=== PATIENT | female | born 1945 | race African-American/Black ===

== ENCOUNTER 2018-01-20 16:02 | Emergency (ER) | payer MEDICARE, MEDICAID ==
[2018-01-20 16:43] LABS: Bilirubin Negative (Negative); Blood, Urine Negative (Negative); Clarity CLOUDY (Clear); Glucose, Urine (Dipstick) Negative (Negative); Leukocyte Large (Negative); Nitrite Negative (Negative); Protein, Urine (Dipstick) Negative (Neg-Trace); Specific Gravity, Urine 1.014 (1.002-1.036)
[2018-01-20 16:45] LABS: Bacteria/HPF 2+ HPF (None Seen); Hyaline Casts/LPF 0-3 HYALINE CAST LPF (0-3 Hyaline); Pathc Cast-AUWi Flag 0.14 (0-2.49); RBC/HPF 0-3 HPF (0-3); Squamous Epithelial None Seen HPF (0-3)
[2018-01-20 17:01] LABS: #Eosinphils 0.2 thou/uL (0.0-0.7); #Lymphocytes 1.7 thou/uL (1.20-3.40); #Monocytes 0.6 thou/uL (0.11-0.59); #Neutrophils 4.2 thou/uL (1.40-6.50); %Basophils 0.5 % (0.0-1.0); %Eosinophils 3.6 % (0.0-10.0); %Lymphocytes 25.8 % (21.0-51.0); %Monocytes 8.1 % (0.0-10.0); %Neutrophils 61.9 % (42.0-75.0); Hemoglobin 11.6 g/dL (12.0-16.0); Mean Corpuscular HGB CONC 33.2 g/dL (32.0-36.0); Mean Corpuscular Hemoglobin 30.4 pg (27.0-31.0); Mean Corpuscular Volume 91.7 fL (78.0-98.0); Mean Platelet Volume 6.5 fL (7.4-10.4); Platelet Count 213 thou/uL (130-400); RBC Distribution Width 11.5 % (11.5-14.5); White Blood Cell (WBC) Count 6.7 thou/uL (4.8-10.8)
--- NOTE | 2018-01-20 17:01 | RAD ---
CHEST ONE VIEW: 01/20/18 HISTORY: Altered mental status. COMPARISON: 05/06/13. FINDINGS: Portable upright chest demonstrates a normal cardiac silhouette. The pulmonary vessels and hilum are normal. Costophrenic angles are clear. No consolidation or mass. No pneumothorax or osseous abnormali ties. IMPRESSION: No acute cardiopulmonary process. POS: [facility]
[2018-01-20 17:24] LABS: ALT (SGPT) 8 U/L (8-55); AST (SGOT) 14 U/L (5-34); Albumin 4.3 g/dL (3.4-4.8); Alkaline Phosphatase 59 U/L (40-150); Anion Gap 14 mmol/L (10-20); BUN (Urea Nitrogen) 14 mg/dL (9.8-20.1); Bilirubin, Total 0.4 mg/dL (0.2-1.2); CK (CPK) 188 U/L (29-168); Calc. Creatinine Clearance 0 mL/min (70-130); Calcium 9.8 mg/dL (7.8-10.44); Carbon Dioxide 23 mmol/L (23-31); Chloride 104 mmol/L (98-107); Estimated GFR-MDRD 86; Globulin 3.8 g/dL (2.4-3.5); Glucose 83 mg/dL (83-110); Lipase 21 U/L (8-78); Potassium 3.8 mmol/L (3.5-5.1); Protein, Total 8.1 g/dL (6.0-8.3); Sodium 137 mmol/L (136-145)
[2018-01-20 17:27] LABS: Troponin I Less than 0.010 ng/mL (< 0.028)
--- NOTE | 2018-01-20 17:43 | CT ---
HEAD CT WITHOUT CONTRAST: 01/20/18 COMPARISON: 05/06/13. HISTORY: Altered mental status. FINDINGS: Stable postsurgical changes involving the right cerebrum. Stable aneurysm clips in the right middle c ranial fossa. Stable malacic changes involving the right cerebrum. Stable hypodensities in the deep g ray matter and periventricular white matter. Grossly, the left cerebrum demonstrates subtle loss of p ossible cortical rivers-white matter differentiation involving the left frontal lobe. Left temporal and parietal lobe are unremarkable. Adequate aeration of the mastoid air cells. Mild right sphenoid sinus disease. IMPRESSION: 1. Subtle loss of cortical rivers-white matter differentiation in the left frontal lobe. Correlate clinically for possible left frontal lobe infarction. 2. Stable posttreatment and postsurgical changes in the right cerebrum. POS: [facility]
[2018-01-20] MEDS ORDERED: Ciprofloxacin 500 MG TAB ONE (18:21)
[2018-01-20] MEDS ORDERED: Labetalol HCl 100 MG/20 ML VIAL ONE (18:21)
== END 2018-01-20 19:17 | disposition home or self-care (01) ==
LOC: ERS 16:02
DX: N39.0 Urinary tract infection, site not specified (principal); E11.9 Type 2 diabetes mellitus without complications; I10 Essential (primary) hypertension; Z86.73 Personal history of transient ischemic attack (TIA), and cerebral infarction without residual deficits; F32.9 Major depressive disorder, single episode, unspecified; Z87.891 Personal history of nicotine dependence; Z79.899 Other long term (current) drug therapy
CPT/HCPCS: 36415; 51701; 70450; 71045; 80053; 81003; 81015; 82550; 82553; 83605; 83690; 83880; 84484; 85025; 87040; 87077; 87086; 87186; 93005; 96361; 96374; A4353

== ENCOUNTER 2018-07-17 22:41 | Observation (INO) | payer MEDICARE, MEDICAID ==
[~2018-07-17 22:41] MED LIST: ISOVUE-370 76%-LOCM 1 ML ONE
--- NOTE | 2018-07-17 23:27 | RAD ---
CHEST ONE VIEW 07/17/18 INDICATION: Altered mental status. COMPARISON: Prior exam dated 01/20/18. FINDINGS: There is stable cardiomegaly. Lungs are clear. Neck soft tissue limits evaluation of lung apices. No pleural effusion is evident. No acute osseous abnormality is evident. IMPRESSION: No definite acute abnormality. POS: [facility]
--- NOTE | 2018-07-17 23:31 | CT ---
CT OF THE BRAIN WITHOUT CONTRAST 07/17/18 INDICATION: Level II stroke alert with slurred speech and altered mental status. COMPARISON: Prior exam dated 01/20/18. FINDINGS: There is stable postsurgical change of a partial right cranial resection. There is prominent encephal omalacia involving the right frontoparietal region as well as portions of the right temporal lobe. T here is ex vacuo dilatation of the right lateral ventricle. Chronic ischemic change is stable. Remote lacunar infarction involving the basal ganglia and right thalamus are stable appearing. No acute inf arct, hemorrhage or hydrocephalus is present. Mastoid air cells and paranasal sinuses are clear. Surg ical clips are again seen within the right middle cranial fossa. IMPRESSION: 1. No acute intracranial abnormality. 2. Postsurgical change and chronic ischemic change as above. POS: [facility]
--- NOTE | 2018-07-17 23:48 | CT ---
CTA OF THE HEAD UTILIZING IV CONTRAST AND 3D REFORMATTED IMAGING CTA OF THE NECK UTILIZING IV CONTRAST AND 3D REFORMATTED IMAGING 07/17/18 INDICATION: Altered mental status with slurred speech that has resolved when EMS arrived at the scene; history of aneurysm. FINDINGS: No hemodynamically significant stenosis, occlusion or aneurysmal formation seen within the head and n william region. There are aneurysmal clips seen within the right middle cranial fossa producing beam scat tered artifact which slightly limits evaluation of the M2 and M3 branches along the right. Portions o f the anterior branching of the MCA are diminutive and likely occluded. There is prominent encephalom alacia of the right MCA distribution consistent with prior history of cerebral insult. Severe chroni c small vessel white matter ischemic change again noted. No abnormal enhancement is seen within the v isualized brain. No definite abnormal lymphadenopathy or mass is evident within the neck. Lung apices are clear. There is scattered degenerative change. IMPRESSION: No hemodynamically significant stenosis, occlusion or aneurysmal formation. POS: [facility]
[2018-07-17 23:50] LABS: #Eosinphils 0.1 thou/uL (0.0-0.7); #Lymphocytes 1.1 thou/uL (1.20-3.40); #Monocytes 0.5 thou/uL (0.11-0.59); #Neutrophils 4.6 thou/uL (1.40-6.50); %Basophils 0.6 % (0.0-1.0); %Eosinophils 1.2 % (0.0-10.0); %Lymphocytes 17.7 % (21.0-51.0); %Monocytes 8.3 % (0.0-10.0); %Neutrophils 72.1 % (42.0-75.0); Hemoglobin 10.6 g/dL (12.0-16.0); Mean Corpuscular HGB CONC 31.8 g/dL (32.0-36.0); Mean Corpuscular Hemoglobin 29.2 pg (27.0-31.0); Mean Corpuscular Volume 91.7 fL (78.0-98.0); Mean Platelet Volume 6.7 fL (7.4-10.4); Platelet Count 179 thou/uL (130-400); RBC Distribution Width 11.8 % (11.5-14.5); Red Blood Cell (RBC) Count 3.63 mill/uL (4.20-5.40); White Blood Cell (WBC) Count 6.4 thou/uL (4.8-10.8)
[2018-07-18 00:12] LABS: ALT (SGPT) 10 U/L (8-55); AST (SGOT) 11 U/L (5-34); Albumin 3.7 g/dL (3.4-4.8); Alkaline Phosphatase 52 U/L (40-150); Anion Gap 12 mmol/L (10-20); BUN (Urea Nitrogen) 29 mg/dL (9.8-20.1); Bilirubin, Total 0.2 mg/dL (0.2-1.2); CK (CPK) 160 U/L (29-168); Calc. Creatinine Clearance 0 mL/min (70-130); Calcium 9.2 mg/dL (7.8-10.44); Carbon Dioxide 23 mmol/L (23-31); Chloride 104 mmol/L (98-107); Estimated GFR-MDRD 57; Globulin 3.1 g/dL (2.4-3.5); Glucose 127 mg/dL (83-110); Potassium 4.1 mmol/L (3.5-5.1); Protein, Total 6.8 g/dL (6.0-8.3); Sodium 135 mmol/L (136-145)
[2018-07-18] MEDS ORDERED: Aspirin Chewable 81 MG TAB ONE (00:14)
[2018-07-18] MEDS ORDERED: Aspirin 325 MG TAB ONE (00:15)
--- NOTE | 2018-07-18 01:17 | PDOC.FPRHP ---
- History of Present Illness Chief Complaint: slurred speech History of Present Illness: 72yo F with pmh of ruptured brain aneurysm with intracranial surgery presents with complaint of slurred speech. Pt reports symptom onset this morning at home with family and the it lasted 10 minutes. Pt denied any other new neurologic symptoms during this time including new focal weakness or sensory loss or syncope/seizure. No facial droop. Pt has residual L sided weakness and LUE contracture from previous brain aneurysm and craniectomy with partial lobectomy. ED Course: ASA 325, CT head, CTA - Allergies/Adverse Reactions Allergies Allergy/AdvReac Type Severity Reaction Status Date / Time No Known Drug Allergies Allergy Verified 07/18/18 02:24 - Home Medications Medication Instructions Recorded Confirmed Type Simvastatin 20 mg PO HS #0 tablet 05/08/13 07/18/18 Rx Amlodipine [Norvasc] 10 mg PO DAILY 07/18/18 07/18/18 History Furosemide [Lasix] 40 mg PO DAILY 07/18/18 07/18/18 History Labetalol [Normodyne] 200 mg PO BID 07/18/18 07/18/18 History Ranitidine HCl 150 mg PO DAILY 07/18/18 07/18/18 History Tolterodine [Detrol] 2 mg PO BID 07/18/18 07/18/18 History - History PMHx:Brain aneurysm s/p craniectomy and partial lobectomy, hemiparesis L, CKD 2 , urge incontinence, DM, HLD PSHx: Craniectomy with partial lobectomy FHx: non contributory Social: former smoker (240 pack years), denies etoh/drugs - Review of Systems General: denies: fever/chills, fatigue Eyes: denies: eye pain, vision changes ENT: denies: nasal congestion, rhinorrhea Respiratory: denies: congestion, shortness of breath Cardiovascular: denies: chest pain, palpitation Gastrointestinal: denies: nausea, vomiting Genitourinary: denies: incontinence, dysuria Skin: denies: rashes, lesions Musculoskeletal: denies: pain, tenderness Neurological: denies: syncope, seizure Psychological: denies: anxiety, depression - Vital signs BP: [130/74] HR: [86] RR: [16] Tmax: [98.4] Pox: [98]% on [ra] Wt: [102kg] - Physical Exam Constitutional: awake, alert and oriented, well developed HEENT: EOMI, grossly normal vision, grossly normal hearing, other (R side of head has crater evidence from craniectomy with skull flap) Neck: supple, trachea midline Chest: no-tender to palpation Heart: RRR, normal S1/S2 Lungs: CTAB, no respiratory distress Abdomen: soft, non-tender Musculoskeletal: normal structure, normal tone Neurological: other -Neurological: CHRONIC DEFICIT: gabriel L sided decreased sensation, LUE contracture, L shoulder shrug weak, LLE strength 4.5/5, L patellar reflex 1 Skin: no rash/lesions, good turgor Heme/Lymphatic: no unusual bruising or bleeding, no purpura Psychiatric: normal mood and affect, intact recent and remote memory FMR H&P: Results - Labs Result Diagrams: 07/17/18 23:32 07/17/18 23:32 Lab results: WBC 6.4 thou/uL (4.8-10.8) 07/17/18 23:32 Hgb 10.6 g/dL (12.0-16.0) L 07/17/18 23:32 Hct 33.3 % (36.0-47.0) L 07/17/18 23:32 MCV 91.7 fL (78.0-98.0) 07/17/18 23:32 Plt Count 179 thou/uL (130-400) 07/17/18 23:32 Neutrophils % 72.1 % (42.0-75.0) 07/17/18 23:32 Sodium 135 mmol/L (136-145) L 07/17/18 23:32 Potassium 4.1 mmol/L (3.5-5.1) 07/17/18 23:32 Chloride 104 mmol/L (98-107) 07/17/18 23:32 Carbon Dioxide 23 mmol/L (23-31) 07/17/18 23:32 BUN 29 mg/dL (9.8-20.1) H 07/17/18 23:32 Creatinine 1.13 mg/dL (0.6-1.1) H 07/17/18 23:32 Glucose 127 mg/dL (83-110) H 07/17/18 23:32 Calcium 9.2 mg/dL (7.8-10.44) 07/17/18 23:32 Total Bilirubin 0.2 mg/dL (0.2-1.2) 07/17/18 23:32 AST 11 U/L (5-34) 07/17/18 23:32 ALT 10 U/L (8-55) 07/17/18 23:32 Alkaline Phosphatase 52 U/L (40-150) 07/17/18 23:32 Creatine Kinase 160 U/L (29-168) 07/17/18 23:32 Serum Total Protein 6.8 g/dL (6.0-8.3) 07/17/18 23:32 Albumin 3.7 g/dL (3.4-4.8) 07/17/18 23:32 FMR H&P: A/P - Problem List (1) TIA (transient ischemic attack) Current Visit: Yes Status: Acute Code(s): G45.9 - TRANSIENT CEREBRAL ISCHEMIC ATTACK, UNSPECIFIED (2) History of CVA (cerebrovascular accident) Current Visit: Yes Status: Acute Code(s): Z86.73 - PRSNL HX OF TIA (TIA), AND CEREB INFRC W/O RESID DEFICITS (3) HTN (hypertension) Current Visit: Yes Status: Acute Code(s): I10 - ESSENTIAL (PRIMARY) HYPERTENSION (4) Diabetes mellitus Current Visit: Yes Status: Acute Code(s): E11.9 - TYPE 2 DIABETES MELLITUS WITHOUT COMPLICATIONS (5) HLD (hyperlipidemia) Current Visit: Yes Status: Acute Code(s): E78.5 - HYPERLIPIDEMIA, UNSPECIFIED - Plan TIA vs CVA A- CT and CTA are negative, the only symptom she had has since resolved. Pt is s.p 325mg ASA P- continue daily ASA - MRI tomorrow pending Radiology's blessing as pt has intracranial clips - FLP in AM - NPO until passed dysphagia screen KAVITA on ckd A- pt has listed hx of CKD2 but most recent Cr in June was wnl. Cr 1.13 at this visit, possibly acutely due to mild hypovolemia P- LR at 125ml/hr - BMP in AM DM A- Pt reported hx of DM but has no meds listed, BG controlled P- SSI, accuchecks HTN -home meds HLD -home meds urge incontinence -home meds CODE: full dispo: stroke obs FMR H&P: Upper Level - Pertinent history 72 yo AAF PMH CVA, aneurysm, and s/p craniotomy with partial lobectomy. Presents with 10 minutes of slurred speech that started at approximately 2130. Resolved by the time she got to the ER. States she has residual left sided deficits from previous CVA. No other symptoms. Former smoker. ER: Labs, CT brain, ASA - Pertinent findings Vitals: WNL GEN: NAD CV: RRR, no murmur Pulm: CTA-B Neuro: left CN11 weakness. Left arm contracted. left leg 4/5. Decreased sensation on left. otherwise WNL. Labs: Cr 1.13, CT- brain: chronic changes. No acute processes. - Plan Date/Time: 07/18/186 I, Amari Rincon MD, have evaluated this patient and agree with findings/plan as outlined by editing internship resident. Pertinent changes/additions are listed here. 1. TIA r/o CVA: FLP, neuro checks. baseline deficits stable. MRI in AM. Bedside dysphasia screen. 2. KAVITA: IV LR at 125 mL/hr 3. chronic conditions per editing internship note. 4. Diet: NPO, HH pending bed side dysphasia screen 5. PPx: SCDs 6. CODE: FULL Dispo: Obs, Stroke, <[address] Leger.
[2018-07-18] MEDS ORDERED: Ondansetron ODT 4 MG TAB SL PRN (02:11)
[2018-07-18] MEDS ORDERED: Dextrose 5% in Water 1,000 ML IV PRN (02:11)
[2018-07-18] MEDS ORDERED: Calcium Carbonate 500 MG ChewTAB PO PRN (02:11)
[2018-07-18] MEDS ORDERED: HumaLOG 300 UNITS/3 ML VIAL SC PRN (02:11)
[2018-07-18] MEDS ORDERED: Ondansetron ODT 4 MG TAB PO PRN (02:11)
[2018-07-18] MEDS ORDERED: Ondansetron PF 4 MG/2 ML Vial IVP PRN (02:11)
[2018-07-18] MEDS ORDERED: Dextrose 50% Abboject 50 ML SYRINGE SLOW IVP PRN (02:11)
[2018-07-18] MEDS ORDERED: Acetaminophen 325 MG TAB PO PRN ×2 (02:11)
[2018-07-18] MEDS: Lactated Ringer's 1,000 ML IV SCH ×3 (02:34→14:56)
[2018-07-18 03:22] VITALS: BMI 37.5
[2018-07-18 05:50] LABS: Anion Gap 11 mmol/L (10-20); BUN (Urea Nitrogen) 26 mg/dL (9.8-20.1); Calc. Creatinine Clearance 97 mL/min (70-130); Calcium 9.4 mg/dL (7.8-10.44); Carbon Dioxide 25 mmol/L (23-31); Cardiac Risk 2.6 (Less than 4.5); Chloride 105 mmol/L (98-107); Cholesterol 167 mg/dl (< 200 Desired); Estimated GFR-MDRD 82; Glucose 89 mg/dL (83-110); HDL Cholesterol 65 mg/dL (>60 Neg Risk); LDL Cholesterol, Calculated 95 mg/dL; Potassium 3.6 mmol/L (3.5-5.1); Sodium 137 mmol/L (136-145); Triglycerides 34 mg/dL (Less than 150)
--- NOTE | 2018-07-18 05:52 | PDOC.FM ---
- Subjective Subjective: Ms. Barragan has no complaints this morning. Says she was able to eat and drink. No new weakness. - Objective Vital Signs & Weight: Vital Signs (12 hours) Temp Pulse Resp BP BP Pulse Ox 07/18/18 03:51 98.1 F 71 18 124/77 95 07/18/18 01:50 98.0 F 82 18 119/66 99 Weight Weight 102.194 kg I&O: 07/16/18 07/17/18 07/18/18 06:59 06:59 06:59 Intake Total 737 Output Total 1 Balance 736 Result Diagrams: 07/17/18 23:32 07/18/18 04:35 Phys Exam - Physical Examination Constitutional: NAD Respiratory: no wheezing, clear to auscultation bilateral Cardiovascular: RRR, no significant murmur Gastrointestinal: soft, non-tender, positive bowel sounds unchanged from baseline. L shoulder shrug weak, LUE contracture Psychiatric: normal affect Skin: normal turgor Dx/Plan (1) TIA (transient ischemic attack) Code(s): G45.9 - TRANSIENT CEREBRAL ISCHEMIC ATTACK, UNSPECIFIED Status: Acute (2) Diabetes mellitus Code(s): E11.9 - TYPE 2 DIABETES MELLITUS WITHOUT COMPLICATIONS Status: Acute (3) HLD (hyperlipidemia) Code(s): E78.5 - HYPERLIPIDEMIA, UNSPECIFIED Status: Acute (4) HTN (hypertension) Code(s): I10 - ESSENTIAL (PRIMARY) HYPERTENSION Status: Acute (5) History of CVA (cerebrovascular accident) Code(s): Z86.73 - PRSNL HX OF TIA (TIA), AND CEREB INFRC W/O RESID DEFICITS Status: Acute - Plan Plan: TIA vs CVA - CT and CTA are negative, the only symptom she had has since resolved. Pt is s.p 325mg ASA - continue daily ASA - MRI today if possible as pt has intracranial clips - patient not on high intensity statin KAVITA, resolved - pt has listed hx of CKD2 but most recent Cr in June was wnl. Cr 1.13 at this visit, possibly acutely due to mild hypovolemia - LR at 125ml/hr, will d/c - Cr 1.13->0.83 this am. DM - Pt reported hx of DM but has no meds listed, BG controlled - SSI, accuchecks HTN -home meds HLD -home meds Chronic normocytic anemia - Hgb 10.6 urge incontinence -home meds CODE: full dispo: pending possible MRI today, likely d/c home
[2018-07-18] MEDS ORDERED: Famotidine 20 MG TAB PO SCH (09:00)
[2018-07-18] MEDS ORDERED: Labetalol 100 MG TAB PO SCH (09:00)
[2018-07-18] MEDS ORDERED: Furosemide 40 MG TAB PO SCH (09:00)
[2018-07-18] MEDS ORDERED: Trospium 20 MG TAB PO SCH (09:00)
[2018-07-18] MEDS ORDERED: Aspirin 81 mg Enteric Coated Tablet PO SCH (09:00)
[2018-07-18] MEDS ORDERED: Non-Formulary Item 1 EACH (Ranitidine Hcl [Ranitidine Hcl] 150 MG) PO SCH (09:00)
[2018-07-18] MEDS ORDERED: Amlodipine 10 MG TAB PO SCH (09:00)
[2018-07-18 12:11] LABS: Hemoglobin A1c 5.5 % (4.0-6.0)
[2018-07-18 12:21] LABS: Iron 80 ug/dL (50-170); Iron Binding Capacity, Total 220 mcg/dL (265-497)
[2018-07-18 15:44] VITALS: BP 142/64; TEMP 98.6
[2018-07-18] MEDS ORDERED: Simvastatin 20 MG TAB PO SCH (21:00)
[2018-07-18] MEDS ORDERED: Atorvastatin Calcium 40 MG TAB PO SCH (21:00)
[2018-07-18] MEDS ORDERED: Atorvastatin Calcium 10 MG TAB PO SCH (21:00)
--- NOTE | 2018-07-20 09:07 | HP ---
ADDENDUM: Also an addendum on the progress note for the same date and same patient. Please see the notes from Dr. Pathak and also Dr. Bates, for which I agree. The patient seen, evaluated, discussed, and examined with the residents by bedside. HISTORY OF PRESENT ILLNESS: This is a 72-year-old female with history of a brain aneurysm in the past that ruptured, for which she ended up getting of craniotomy and removal of sounds like a fairly large area, where she had a bleed. But despite that and chronic left arm contracture, it sounds like she was doing fairly well and has been in the baseline for a long time, but then had about 10 minutes of slurred speech on the 8. By the time, she came in, she was completely fine and is being observed for the possibility of a TIA. HOME MEDICATIONS: Per the residents history and physical, for which I agree. PAST MEDICAL HISTORY: Per the residents history and physical, for which I agree. PAST SURGICAL HISTORY: Per the residents history and physical, for which I agree. SOCIAL HISTORY: Per the residents history and physical, for which I agree. REVIEW OF SYSTEMS: Per the residents history and physical, for which I agree. PHYSICAL EXAMINATION: VITAL SIGNS: Afebrile. Vital signs are stable. GENERAL: No apparent distress. Alert and oriented x3. Appropriate, obvious changes in the right cranium, where she has had the previous surgery around the right religion. But, no slurring speech. Cranial nerves 2 through 12 look intact. NECK: No lymphadenopathy, thyromegaly, or bruits. HEENT: Conjunctivae not pale. CHEST: Clear. HEART: Regular rate and rhythm without any ectopy. ABDOMEN: Benign. EXTREMITIES: Showed no edema. NEUROLOGIC: As above and has the chronic left upper extremity contractures and weakness, but seems fairly good strength in the lower extremities bilaterally. LABORATORY DATA: Initial blood workup shows just a little bit of slight anemia with hemoglobin 10.6. Creatinine barely elevated at 1.1. Sugar barely elevated at 127. CT really did not show any changes. ASSESSMENT AND PLAN: 1. Transient ischemic attack with history of previous major cerebrovascular accident and brain bleed. At this point in time, we will see if we get an MRI, but with the history of clips in the brain and probably inability to get to the operative report, probably not worth it if it set her up for risk for MRI causing damage obviously, so I do not think we will change her medications as much. It is does like a transient ischemic attack and we will probably just increase the aspirin from 81 mg to 162 mg. Certainly, we will increase her statin as well to high-dose statin, may have some benefit. 2. Minimum elevated creatinine, better with fluids. 3. Diabetes. We will watch sugar, not on medications currently. 4. Hypertension. Continue home medications. I really anticipate probably a discharge later today and of note, she passed a swallowing study. Job ID: [id number]
--- NOTE | 2018-07-20 12:53 | DIS ---
DATE OF ADMISSION: 07/18/2018 DATE OF DISCHARGE: 07/18/2018 RESIDENT: Corazon Bates DO. ADMITTING ATTENDING: Mario Leger MD. CONSULTS: None. PROCEDURES: 1. 07/17/2018, brain CT showed no acute intracranial abnormality, postsurgical change and chronic ischemic change. 2. 07/17/2018, CT angiography showed no hemodynamically significant stenosis, occlusion, or aneurysmal formation. 3. 07/18/2018, echocardiogram showed ejection fraction of 55% to 60%, E-A flow reversal noted suggestive of diastolic dysfunction, mild mitral regurgitation, mild tricuspid regurgitation. PRIMARY DIAGNOSES: 1. Transient ischemic attack. 2. Acute kidney injury. SECONDARY DIAGNOSES: 1. Diabetes. 2. Hypertension. 3. Hyperlipidemia. 4. Chronic normocytic anemia. 5. Urge incontinence. DISCHARGE MEDICATIONS: 1. Labetalol 200 mg p.o. b.i.d. 2. Furosemide 40 mg p.o. daily. 3. Amlodipine 10 mg p.o. daily. 4. Tolterodine 2 mg p.o. b.i.d. 5. Ranitidine 150 mg p.o. daily. 6. Aspirin 162 mg p.o. daily. 7. Atorvastatin 40 mg p.o. at bedtime. DISCONTINUED MEDICATIONS: 1. Simvastatin 20 mg p.o. at bedtime. 2. Aspirin 81 mg p.o. daily. HISTORY OF PRESENT ILLNESS: A 72-year-old female with past medical history of ruptured brain aneurysm with intracranial surgery, presented with complaint of slurred speech. Symptom onset was at home with family, which lasted for 10 minutes. There were no other neurologic symptoms at that time or on presentation. No focal weakness, sensory loss, seizures, or syncope. At the time of evaluation, her symptom had resolved and she was back at baseline with her long-standing residual neurologic defects from prior. MRI was unable to be completed due to intracranial clips. The patient initially presented with an KAVITA, which quickly resolved with IV fluids. The patient was stable at the time of discharge with no new symptoms. Statin was increased to a high-intensity statin. Aspirin dose was increased as well. DISPOSITION: Stable. DISCHARGE INSTRUCTIONS: 1. Location: Home. 2. Diet: Diabetic and heart healthy. 3. Activity: As tolerated. 4. Follow up with PCP, Dr. Pathak, at [facility] within 7 days. Job ID: [id number]
--- NOTE | 2018-07-25 11:56 | EKG ---
Test Reason : STROKESYMPTOMS Blood Pressure : / mmHG Vent. Rate : 089 BPM Atrial Rate : 089 BPM P-R Int : 132 ms QRS Dur : 092 ms QT Int : 394 ms P-R-T Axes : 035 -31 034 degrees QTc Int : 479 ms Normal sinus rhythm Left axis deviation Voltage criteria for left ventricular hypertrophy Abnormal ECG Confirmed by SRINIVAS DUBON DO ([id number]), video effects editor ROXANNE ORTEGA ([id number]) on 07/25/2018 11:55:45 AM Referred By: JAGDISH Confirmed By:SRINIVAS DUBON DO
== END 2018-07-18 17:35 | disposition home or self-care (01) ==
LOC: ERS 22:41 → INTOOBSV 07-18 01:32 → 2SE 07-18 01:32
PROVIDERS: ADMIT Family Medicine; ATTEND Family Medicine
DX: G45.9 Transient cerebral ischemic attack, unspecified (principal); I12.9 Hypertensive chronic kidney disease with stage 1 through stage 4 chronic kidney disease, or unspecified chronic kidney disease; E11.22 Type 2 diabetes mellitus with diabetic chronic kidney disease; N18.2 Chronic kidney disease, stage 2 (mild); D63.1 Anemia in chronic kidney disease; N17.9 Acute kidney failure, unspecified; N39.41 Urge incontinence; M24.50 Contracture, unspecified joint; E78.5 Hyperlipidemia, unspecified; I69.254 Hemiplegia and hemiparesis following other nontraumatic intracranial hemorrhage affecting left non-dominant side; Z87.891 Personal history of nicotine dependence; Z79.899 Other long term (current) drug therapy; Z90.89 Acquired absence of other organs; Z98.890 Other specified postprocedural states
CPT/HCPCS: 70450; 70496; 70498; 71045; 80048; 80053; 80061; 82550; 82728; 82962; 83036; 83540; 83550; 84484; 85025; 93005; 93306; 94760; 96360; 96361; 99285; G0378 ×2; 36415; 36416; Q9966

== ENCOUNTER 2018-07-22 11:56 | Emergency (ER) | payer MEDICARE, MEDICAID | END 2018-07-22 13:47 | disposition home or self-care (01) | LOC: ERS 11:56 | DX: R51 Headache (principal); E78.5 Hyperlipidemia, unspecified; I12.9 Hypertensive chronic kidney disease with stage 1 through stage 4 chronic kidney disease, or unspecified chronic kidney disease; N18.2 Chronic kidney disease, stage 2 (mild); E11.22 Type 2 diabetes mellitus with diabetic chronic kidney disease; Z86.73 Personal history of transient ischemic attack (TIA), and cerebral infarction without residual deficits; Z87.891 Personal history of nicotine dependence; Z79.899 Other long term (current) drug therapy | CPT/HCPCS: 99281 ==

== ENCOUNTER 2020-08-21 16:41 | Observation (INO) | payer MEDICARE, MEDICAID ==
[~2020-08-21 16:41] MED LIST changes: -ISOVUE-370 76%-LOCM 1 ML ONE; +Iopamidol-370 76% 500 ML 1 ML ONE
[2020-08-21 17:12] LABS: #Eosinphils 0.2 thou/uL (0.0-0.7); #Lymphocytes 1.2 thou/uL (1.20-3.40); #Monocytes 0.7 thou/uL (0.11-0.59); #Neutrophils 5.6 thou/uL (1.40-6.50); %Basophils 0.5 % (0.0-1.0); %Eosinophils 2.2 % (0.0-10.0); %Lymphocytes 15.6 % (21.0-51.0); %Monocytes 9.1 % (0.0-10.0); %Neutrophils 72.6 % (42.0-75.0); Hemoglobin 10.9 g/dL (12.0-16.0); Mean Corpuscular HGB CONC 32.2 g/dL (32.0-36.0); Mean Corpuscular Hemoglobin 29.5 pg (27.0-31.0); Mean Corpuscular Volume 91.6 fL (78.0-98.0); Mean Platelet Volume 6.3 fL (7.4-10.4); Platelet Count 215 thou/uL (130-400); RBC Distribution Width 12.2 % (11.5-14.5); Red Blood Cell (RBC) Count 3.71 mill/uL (4.20-5.40); White Blood Cell (WBC) Count 7.7 thou/uL (4.8-10.8)
[2020-08-21 17:19] LABS: INR-International Normal Ratio 1.1; PTT 30.1 sec (22.9-36.1); Prothrombin Time 14.1 sec (12.0-14.7)
[2020-08-21 17:35] LABS: ALT (SGPT) Less than 7 U/L (8-55); AST (SGOT) 10 U/L (5-34); Alkaline Phosphatase 70 U/L (40-110); Anion Gap 13 mmol/L (10-20); BUN (Urea Nitrogen) 26 mg/dL (9.8-20.1); Bilirubin, Total 0.3 mg/dL (0.2-1.2); CK (CPK) 104 U/L (29-168); Calc. Creatinine Clearance 0 mL/min (70-130); Carbon Dioxide 27 mmol/L (23-31); Chloride 102 mmol/L (98-107); Globulin 3.4 g/dL (2.4-3.5); Glucose 115 mg/dL (83-110); Protein, Total 7.4 g/dL (5.8-8.1); Sodium 138 mmol/L (136-145)
[2020-08-21 17:38] LABS: Bacteria/HPF 4+ HPF (None Seen); Bilirubin Negative (Negative); Blood, Urine 2+ (Negative); Clarity Turbid (Clear); Glucose, Urine (Dipstick) Normal (Negative); Ketone, Urine Negative (Negative); Leukocyte 500 Leu/uL (Negative); Nitrite Negative (Negative); Protein, Urine (Dipstick) 30 mg/dL (Neg-Trace); RBC/HPF 21-50 HPF (0-3); Specific Gravity, Urine 1.033 (1.002-1.036); Squamous Epithelial 0-3 HPF (0-3); Urobilinogen Normal mg/dL (Less than 2); WBC/HPF Greater than 50 HPF (0-3)
[2020-08-21] MEDS ORDERED: cefTRIAXone\\ROCEPHIN 1 GM VIAL ONE (18:24)
[2020-08-21] MEDS ORDERED: Aspirin Chewable 81 MG TAB ONE (19:20)
[2020-08-21 19:23] LABS: Hemoglobin A1c 5.3 % (4.0-6.0)
[2020-08-21] MEDS ORDERED: Acetaminophen 325 MG TAB PO PRN (21:00)
[2020-08-21] MEDS ORDERED: Ondansetron ODT 4 MG TAB SL PRN (21:00)
[2020-08-21] MEDS ORDERED: Ondansetron PF 4 MG/2 ML Vial IVP PRN (21:00)
[2020-08-21] MEDS ORDERED: Lactated Ringer's 500 ML IV SCH (21:30)
[2020-08-21 22:09] VITALS: BMI 37.1
[2020-08-22] MEDS ORDERED: Famotidine 20 MG TAB PO PRN (00:35)
[2020-08-22] MEDS ORDERED: Clopidogrel Bisulfate 300 MG TAB PO SCH (01:15)
[2020-08-22 05:05] LABS: SARS-CoV-2 PCR by NAA Not Detected (NotDetected)
[2020-08-22 05:45] LABS: #Basophils 0.1 thou/uL (0.0-0.2); #Eosinphils 0.2 thou/uL (0.0-0.7); #Lymphocytes 1.7 thou/uL (1.20-3.40); #Monocytes 0.5 thou/uL (0.11-0.59); #Neutrophils 4.1 thou/uL (1.40-6.50); %Basophils 0.8 % (0.0-1.0); %Eosinophils 2.7 % (0.0-10.0); %Lymphocytes 25.6 % (21.0-51.0); %Monocytes 8.1 % (0.0-10.0); %Neutrophils 62.8 % (42.0-75.0); Hemoglobin 10.7 g/dL (12.0-16.0); Mean Corpuscular HGB CONC 32.5 g/dL (32.0-36.0); Mean Corpuscular Hemoglobin 29.6 pg (27.0-31.0); Mean Platelet Volume 6.6 fL (7.4-10.4); Platelet Count 228 thou/uL (130-400); RBC Distribution Width 12.1 % (11.5-14.5); Red Blood Cell (RBC) Count 3.61 mill/uL (4.20-5.40); White Blood Cell (WBC) Count 6.6 thou/uL (4.8-10.8)
[2020-08-22 05:56] LABS: Anion Gap 15 mmol/L (10-20); BUN (Urea Nitrogen) 17 mg/dL (9.8-20.1); Calc. Creatinine Clearance 104 mL/min (70-130); Calcium 9.3 mg/dL (7.8-10.44); Carbon Dioxide 23 mmol/L (23-31); Cardiac Risk 2.8 (Less than 4.5); Chloride 105 mmol/L (98-107); Cholesterol 181 mg/dl (< 200 Desired); Glucose 100 mg/dL (83-110); HDL Cholesterol 64 mg/dL (>60 Neg Risk); LDL Cholesterol, Calculated 109 mg/dL; Potassium 3.5 mmol/L (3.5-5.1); Sodium 139 mmol/L (136-145); Triglycerides 42 mg/dL (Less than 150)
[2020-08-22] MEDS ORDERED: Aspirin 81 mg Enteric Coated Tablet PO SCH (09:00)
[2020-08-22] MEDS ORDERED: Enoxaparin Sodium 40 MG/0.4 ML SYRINGE SC SCH (09:00)
[2020-08-22] MEDS ORDERED: Clopidogrel Bisulfate 75 MG TAB PO SCH (09:00)
[2020-08-22 16:48] VITALS: BP 144/73; TEMP 98.5
[2020-08-22] MEDS ORDERED: Atorvastatin Calcium 40 MG TAB PO SCH ×2 (21:00)
== END 2020-08-22 18:12 | disposition home health service (06) ==
LOC: ERS 16:41 → 2SE 18:53
PROVIDERS: ADMIT Student in an Organized Health Care Education/Training Program; ATTEND Student in an Organized Health Care Education/Training Program
DX: G93.40 Encephalopathy, unspecified (principal); N39.0 Urinary tract infection, site not specified; I10 Essential (primary) hypertension; E78.5 Hyperlipidemia, unspecified; D64.9 Anemia, unspecified; E11.9 Type 2 diabetes mellitus without complications; R53.81 Other malaise; B35.1 Tinea unguium; I67.2 Cerebral atherosclerosis; I70.0 Atherosclerosis of aorta; I69.354 Hemiplegia and hemiparesis following cerebral infarction affecting left non-dominant side; Z87.891 Personal history of nicotine dependence; Z79.82 Long term (current) use of aspirin; Z79.899 Other long term (current) drug therapy; Z90.89 Acquired absence of other organs; Z20.822 Contact with and (suspected) exposure to COVID-19
CPT/HCPCS: 51701; 70450; 70496; 70498; 71045; 80048; 80053; 80061; 82550; 82728; 82962 ×2; 83036; 84484; 85025 ×2; 85610; 85730; 87077; 87086; 87186; 93005; 94760; 96365; 96372; 97139; 97530; 97535; 99285; G0378 ×2; U0003; U0005; 36415; 36416; 81003; 81015; 87635; J0696; J1650; Q9967

== ENCOUNTER 2021-06-26 18:19 | Emergency (ER) | payer MEDICARE, MEDICAID ==
[2021-06-26 19:22] LABS: #Lymphocytes 0.9 thou/uL (1.20-3.40); #Monocytes 0.7 thou/uL (0.11-0.59); %Basophils 0.3 % (0.0-1.0); %Eosinophils 0.4 % (0.0-10.0); %Lymphocytes 9.7 % (21.0-51.0); %Monocytes 6.9 % (0.0-10.0); %Neutrophils 82.7 % (42.0-75.0); Hemoglobin 11.3 g/dL (12.0-16.0); Mean Corpuscular HGB CONC 32.1 g/dL (32.0-36.0); Mean Corpuscular Hemoglobin 29.9 pg (27.0-31.0); Mean Corpuscular Volume 93.1 fL (78.0-98.0); Mean Platelet Volume 6.9 fL (7.4-10.4); Platelet Count 214 thou/uL (130-400); Red Blood Cell (RBC) Count 3.79 mill/uL (4.20-5.40); White Blood Cell (WBC) Count 9.7 thou/uL (4.8-10.8)
[2021-06-26 19:34] LABS: INR-International Normal Ratio 1.1; PTT 25.8 sec (22.9-36.1)
[2021-06-26 19:44] LABS: Bilirubin Negative (Negative); Blood, Urine Negative (Negative); Clarity Clear (Clear); Glucose, Urine (Dipstick) Normal (Negative); Ketone, Urine Negative (Negative); Leukocyte 25 Leu/uL (Negative); Nitrite Negative (Negative); Protein, Urine (Dipstick) 10 mg/dL (Neg-Trace); RBC/HPF 0-3 HPF (0-3); Specific Gravity, Urine 1.019 (1.002-1.036); Squamous Epithelial 0-3 HPF (0-3); Urobilinogen Normal mg/dL (Less than 2); pH, Urine 5.5 (5.0-9.0)
[2021-06-26 19:50] LABS: ALT (SGPT) 12 U/L (8-55); AST (SGOT) 17 U/L (5-34); Albumin 4.4 g/dL (3.4-4.8); Alkaline Phosphatase 74 U/L (40-110); Anion Gap 16 mmol/L (10-20); BUN (Urea Nitrogen) 22 mg/dL (9.8-20.1); Bilirubin, Total 0.6 mg/dL (0.2-1.2); CK (CPK) 220 U/L (29-168); Calc. Creatinine Clearance 0 mL/min (70-130); Calcium 9.9 mg/dL (7.8-10.44); Carbon Dioxide 22 mmol/L (23-31); Chloride 104 mmol/L (98-107); Glucose 151 mg/dL (83-110); Lipase 33 U/L (8-78); Potassium 4.3 mmol/L (3.5-5.1); Protein, Total 8.4 g/dL (5.8-8.1); Sodium 138 mmol/L (136-145)
[2021-06-26 20:01] LABS: Bacteria/HPF Rare-Few HPF (None Seen)
== END 2021-06-26 21:56 | disposition home or self-care (01) ==
LOC: ERS 18:19
DX: G45.9 Transient cerebral ischemic attack, unspecified (principal); I45.10 Unspecified right bundle-branch block; E78.5 Hyperlipidemia, unspecified; E78.00 Pure hypercholesterolemia, unspecified; I12.9 Hypertensive chronic kidney disease with stage 1 through stage 4 chronic kidney disease, or unspecified chronic kidney disease; E11.22 Type 2 diabetes mellitus with diabetic chronic kidney disease; N18.9 Chronic kidney disease, unspecified; Z86.73 Personal history of transient ischemic attack (TIA), and cerebral infarction without residual deficits; Z87.891 Personal history of nicotine dependence; Z79.82 Long term (current) use of aspirin; Z79.899 Other long term (current) drug therapy
CPT/HCPCS: 70450; 71045; 80053; 81003; 81015; 82550; 83605; 83690; 83880; 84443; 84484; 85025; 85610; 85730; 87040; 87086; 87149; 93005

== ENCOUNTER 2022-03-21 12:36 | Outpatient (CLI) | payer MEDICARE, OTHER | END 2022-03-21 12:37 | disposition home or self-care (01) | LOC: ULT 12:36 | PROVIDERS: ATTEND Student in an Organized Health Care Education/Training Program | DX: R60.0 Localized edema (principal) ==

== ENCOUNTER 2022-09-14 16:48 | Inpatient (IN) | payer MEDICARE, OTHER ==
[~2022-09-14 16:48] MED LIST changes: -Iopamidol-370 76% 500 ML 1 ML ONE; +Iopamidol-370 76% 500 ML MDV (1 ML CHARGE) ONE
[2022-09-14 17:43] LABS: #Lymphocytes 0.8 thou/uL (1.20-3.40); #Monocytes 0.6 thou/uL (0.11-0.59); #Neutrophils 6.7 thou/uL (1.40-6.50); %Basophils 0.3 % (0.0-1.0); %Eosinophils 0.4 % (0.0-10.0); %Lymphocytes 10.1 % (21.0-51.0); %Neutrophils 82.3 % (42.0-75.0); Hemoglobin 10.9 g/dL (12.0-16.0); Mean Corpuscular Volume 90.9 fl (78.0-98.0); Mean Platelet Volume 6.9 fL (7.4-10.4); Platelet Count 172 10x3/uL (130-400); RBC Distribution Width 11.7 % (11.5-14.5); Red Blood Cell (RBC) Count 3.63 mill/uL (4.20-5.40); White Blood Cell (WBC) Count 8.1 10x3/uL (4.8-10.8)
[2022-09-14 17:48] LABS: INR-International Normal Ratio 1.2; Prothrombin Time 15.2 sec (12.0-14.7)
[2022-09-14 17:49] LABS: PTT 27.6 sec (22.9-36.1)
[2022-09-14 18:00] LABS: ALT (SGPT) Less than 7 U/L (8-55); AST (SGOT) 13 U/L (5-34); Albumin 3.7 g/dL (3.4-4.8); Alkaline Phosphatase 58 U/L (40-110); Anion Gap 13 mmol/L (10-20); BUN (Urea Nitrogen) 22 mg/dL (9.8-20.1); Bilirubin, Total 0.4 mg/dL (0.2-1.2); Calc. Creatinine Clearance 0 mL/min (70-130); Calcium 8.8 mg/dL (7.8-10.44); Carbon Dioxide 22 mmol/L (23-31); Chloride 105 mmol/L (98-107); Estimated GFR 33; Globulin 3.2 g/dL (2.4-3.5); Glucose 141 mg/dL (83-110); Potassium 3.1 mmol/L (3.5-5.1); Protein, Total 6.9 g/dL (5.8-8.1); Sodium 137 mmol/L (136-145)
[2022-09-14] MEDS ORDERED: Aspirin Chewable 81 MG TAB ONE (19:20)
[2022-09-14] MEDS ORDERED: Potassium Chloride 20 MEQ TAB ONE (19:20)
[2022-09-14] MEDS ORDERED: HumaLOG 300 UNITS/3 ML VIAL SC PRN ×2 (20:27)
[2022-09-14] MEDS ORDERED: Dextrose 50% Abboject 50 ML SYRINGE SLOW IVP PRN (20:27)
[2022-09-14] MEDS ORDERED: Dextrose 5% in Water 1,000 ML IV PRN (20:27)
[2022-09-14] MEDS ORDERED: Nystatin Powder 15 GM BOT TOP PRN (20:38)
[2022-09-14 21:51] LABS: Hemoglobin A1c 5.2 % (4.0-6.0)
[2022-09-14 22:09] LABS: Magnesium 1.7 mg/dL (1.6-2.6); Phosphorus 3.7 mg/dL (2.3-4.7)
[2022-09-14 22:10] LABS: Acetaminophen Less than 10.0 mcg/mL (10.0-30.0); Alcohol Less than 10 mg/dL (Less than 10); CK (CPK) 264 U/L (29-168); Salicylate Less than 8.0 mg/dL (15.0-30.0)
[2022-09-14 22:13] LABS: Troponin I Less than 0.010 ng/mL (< 0.028)
[2022-09-14] MEDS: Potassium Chloride 20 MEQ in Premix Bag 1 BAG IVPB SCH (22:16)
[2022-09-14] MEDS: Heparin 5,000 UNITS/ML VIAL SC SCH (22:17)
[2022-09-14] MEDS ORDERED: Magnesium 2 GM/50 ML(in water) 2 GM in Premix Bag 1 BAG IVPB SCH (22:30)
[2022-09-15] MEDS: Potassium Chloride 20 MEQ in Premix Bag 1 BAG IVPB SCH (00:08)
[2022-09-15 00:32] VITALS: BMI 35.7
[2022-09-15] MEDS: Acetaminophen 325 MG TAB PO PRN ×2 (00:37→08:51)
[2022-09-15] MEDS ORDERED: Melatonin 3 MG TAB PO SCH (02:30)
[2022-09-15 04:03] LABS: Bacteria/HPF None Seen HPF (None Seen); Bilirubin Negative (Negative); Blood, Urine Negative (Negative); CAUTI Indications for Culture Alt mental st,lethar; Clarity Clear (Clear); Glucose, Urine (Dipstick) Normal (Negative); Ketone, Urine Negative (Negative); Leukocyte 250 Leu/uL (Negative); Nitrite Negative (Negative); Protein, Urine (Dipstick) Negative (Neg-Trace); Squamous Epithelial 0-3 HPF (0-3); Urobilinogen Normal mg/dL (Less than 2); pH, Urine 5.5 (5.0-9.0)
[2022-09-15 04:05] LABS: Urine Culture Reflex Yes Yes
[2022-09-15 04:08] LABS: Amphetamine Not Detected (NotDetected); Barbiturates Screen Not Detected (NotDetected); Benzodiazepine Screen Not Detected (NotDetected); Cocaine Metabolite Screen Not Detected (NotDetected); Methadone Not Detected (NotDetected); Methamphetamine Not Detected (NotDetected); Opiate Screen Not Detected (NotDetected); Oxycodone Screen Not Detected (NotDetected); Phencyclidine (PCP) Not Detected (NotDetected); THC/Cannabinoid Screen Not Detected (NotDetected); Tricyclic Screen Not Detected (NotDetected)
[2022-09-15 04:19] LABS: Creatinine, Urine 147.09 mg/dL (47-110)
[2022-09-15 04:56] LABS: #Basophils 0.1 thou/uL (0.0-0.2); #Eosinphils 0.1 thou/uL (0.0-0.7); #Lymphocytes 1.2 thou/uL (1.20-3.40); #Monocytes 0.7 thou/uL (0.11-0.59); #Neutrophils 4.8 thou/uL (1.40-6.50); %Basophils 0.8 % (0.0-1.0); %Eosinophils 1.7 % (0.0-10.0); %Lymphocytes 17.9 % (21.0-51.0); %Monocytes 9.6 % (0.0-10.0); %Neutrophils 70.1 % (42.0-75.0); Hemoglobin 10.3 g/dL (12.0-16.0); Mean Corpuscular HGB CONC 31.5 g/dL (32.0-36.0); Mean Corpuscular Hemoglobin 28.7 pg (27.0-31.0); Mean Corpuscular Volume 90.9 fl (78.0-98.0); Mean Platelet Volume 6.9 fL (7.4-10.4); Platelet Count 173 10x3/uL (130-400); RBC Distribution Width 11.7 % (11.5-14.5); Red Blood Cell (RBC) Count 3.58 mill/uL (4.20-5.40); White Blood Cell (WBC) Count 6.9 10x3/uL (4.8-10.8)
[2022-09-15 05:13] LABS: ALT (SGPT) 8 U/L (8-55); AST (SGOT) 13 U/L (5-34); Albumin 3.7 g/dL (3.4-4.8); Alkaline Phosphatase 57 U/L (40-110); Anion Gap 13 mmol/L (10-20); BUN (Urea Nitrogen) 22 mg/dL (9.8-20.1); Bilirubin, Total 0.6 mg/dL (0.2-1.2); Calc. Creatinine Clearance 67 mL/min (70-130); Calcium 9.2 mg/dL (7.8-10.44); Carbon Dioxide 21 mmol/L (23-31); Cardiac Risk 3.2 (Less than 4.5); Chloride 108 mmol/L (98-107); Cholesterol 177 mg/dl (< 200 Desired); Estimated GFR 53; Globulin 3.2 g/dL (2.4-3.5); Glucose 92 mg/dL (83-110); HDL Cholesterol 55 mg/dL (>60 Neg Risk); LDL Cholesterol, Calculated 113 mg/dL; Magnesium 2.3 mg/dL (1.6-2.6); Potassium 4.1 mmol/L (3.5-5.1); Protein, Total 6.9 g/dL (5.8-8.1); Sodium 138 mmol/L (136-145); Triglycerides 45 mg/dL (Less than 150)
[2022-09-15] MEDS: Amlodipine 10 MG TAB PO SCH (08:51)
[2022-09-15] MEDS: Labetalol HCl 100 MG TAB PO SCH ×2 (08:51→20:52)
[2022-09-15] MEDS: Aspirin 81 mg Enteric Coated Tablet PO SCH (08:51)
[2022-09-15] MEDS: Heparin 5,000 UNITS/ML VIAL SC SCH ×3 (08:52→20:52)
[2022-09-15] MEDS ORDERED: Oxybutynin 5 MG TAB PO SCH (09:00)
[2022-09-15] MEDS ORDERED: Famotidine 20 MG TAB PO PRN (09:00)
[2022-09-15] MEDS: Atorvastatin Calcium 40 MG TAB PO SCH (20:52)
[2022-09-16 05:13] LABS: #Eosinphils 0.2 thou/uL (0.0-0.7); #Lymphocytes 1.4 thou/uL (1.20-3.40); #Monocytes 0.4 thou/uL (0.11-0.59); %Basophils 0.7 % (0.0-1.0); %Eosinophils 2.8 % (0.0-10.0); %Lymphocytes 23.2 % (21.0-51.0); %Monocytes 7.3 % (0.0-10.0); Mean Corpuscular HGB CONC 32.9 g/dL (32.0-36.0); Mean Corpuscular Hemoglobin 29.9 pg (27.0-31.0); Mean Corpuscular Volume 90.9 fl (78.0-98.0); Mean Platelet Volume 6.9 fL (7.4-10.4); Platelet Count 161 10x3/uL (130-400); RBC Distribution Width 11.8 % (11.5-14.5); Red Blood Cell (RBC) Count 3.33 mill/uL (4.20-5.40)
[2022-09-16 05:31] LABS: ALT (SGPT) 7 U/L (8-55); AST (SGOT) 12 U/L (5-34); Albumin 3.6 g/dL (3.4-4.8); Alkaline Phosphatase 54 U/L (40-110); Anion Gap 10 mmol/L (10-20); BUN (Urea Nitrogen) 17 mg/dL (9.8-20.1); Bilirubin, Total 0.4 mg/dL (0.2-1.2); Calc. Creatinine Clearance 81 mL/min (70-130); Calcium 9.1 mg/dL (7.8-10.44); Carbon Dioxide 25 mmol/L (23-31); Chloride 106 mmol/L (98-107); Estimated GFR 66; Globulin 3.2 g/dL (2.4-3.5); Glucose 84 mg/dL (83-110); Protein, Total 6.8 g/dL (5.8-8.1); Sodium 137 mmol/L (136-145)
[2022-09-16] MEDS: Amlodipine 10 MG TAB PO SCH (09:19)
[2022-09-16] MEDS: Heparin 5,000 UNITS/ML VIAL SC SCH ×3 (09:19→20:37)
[2022-09-16] MEDS: Aspirin 81 mg Enteric Coated Tablet PO SCH (09:19)
[2022-09-16] MEDS: Labetalol HCl 100 MG TAB PO SCH ×2 (09:19→20:37)
[2022-09-16] MEDS: Atorvastatin Calcium 40 MG TAB PO SCH (20:37)
[2022-09-17 04:49] LABS: #Eosinphils 0.2 thou/uL (0.0-0.7); #Monocytes 0.6 thou/uL (0.11-0.59); #Neutrophils 4.3 thou/uL (1.40-6.50); %Basophils 0.6 % (0.0-1.0); %Eosinophils 2.8 % (0.0-10.0); %Lymphocytes 18.7 % (21.0-51.0); %Monocytes 9.4 % (0.0-10.0); %Neutrophils 68.3 % (42.0-75.0); Mean Corpuscular HGB CONC 32.3 g/dL (32.0-36.0); Mean Corpuscular Hemoglobin 28.7 pg (27.0-31.0); Mean Corpuscular Volume 89.1 fl (78.0-98.0); Mean Platelet Volume 8.9 fL (7.4-10.4); Platelet Count 169 10x3/uL (130-400); RBC Distribution Width 12.5 % (11.5-14.5); Red Blood Cell (RBC) Count 3.48 mill/uL (4.20-5.40); White Blood Cell (WBC) Count 6.4 10x3/uL (4.8-10.8)
[2022-09-17 05:16] LABS: ALT (SGPT) 8 U/L (8-55); AST (SGOT) 11 U/L (5-34); Albumin 3.7 g/dL (3.4-4.8); Alkaline Phosphatase 54 U/L (40-110); Anion Gap 11 mmol/L (10-20); BUN (Urea Nitrogen) 20 mg/dL (9.8-20.1); Bilirubin, Total 0.4 mg/dL (0.2-1.2); Calc. Creatinine Clearance 76 mL/min (70-130); Calcium 9.2 mg/dL (7.8-10.44); Carbon Dioxide 24 mmol/L (23-31); Chloride 107 mmol/L (98-107); Estimated GFR 61; Globulin 3.2 g/dL (2.4-3.5); Glucose 102 mg/dL (83-110); Protein, Total 6.9 g/dL (5.8-8.1); Sodium 138 mmol/L (136-145)
[2022-09-17] MEDS: Aspirin 81 mg Enteric Coated Tablet PO SCH (08:45)
[2022-09-17] MEDS: Amlodipine 10 MG TAB PO SCH (08:45)
[2022-09-17] MEDS: Heparin 5,000 UNITS/ML VIAL SC SCH ×3 (08:45→20:28)
[2022-09-17] MEDS: Labetalol HCl 100 MG TAB PO SCH ×2 (08:45→20:28)
[2022-09-17] MEDS: Atorvastatin Calcium 40 MG TAB PO SCH (20:28)
[2022-09-18 06:17] LABS: #Eosinphils 0.2 thou/uL (0.0-0.7); #Monocytes 0.7 thou/uL (0.11-0.59); #Neutrophils 4.4 thou/uL (1.40-6.50); %Basophils 0.6 % (0.0-1.0); %Eosinophils 2.7 % (0.0-10.0); %Lymphocytes 20.3 % (21.0-51.0); %Neutrophils 66.1 % (42.0-75.0); Hemoglobin 10.2 g/dL (12.0-16.0); Mean Corpuscular HGB CONC 32.4 g/dL (32.0-36.0); Mean Corpuscular Hemoglobin 28.5 pg (27.0-31.0); Mean Platelet Volume 9.4 fL (7.4-10.4); Platelet Count 178 10x3/uL (130-400); RBC Distribution Width 12.5 % (11.5-14.5); Red Blood Cell (RBC) Count 3.58 mill/uL (4.20-5.40); White Blood Cell (WBC) Count 6.7 10x3/uL (4.8-10.8)
[2022-09-18 06:41] LABS: ALT (SGPT) 10 U/L (8-55); AST (SGOT) 14 U/L (5-34); Albumin 3.7 g/dL (3.4-4.8); Alkaline Phosphatase 58 U/L (40-110); Anion Gap 12 mmol/L (10-20); BUN (Urea Nitrogen) 20 mg/dL (9.8-20.1); Bilirubin, Total 0.4 mg/dL (0.2-1.2); Calc. Creatinine Clearance 81 mL/min (70-130); Calcium 9.4 mg/dL (7.8-10.44); Carbon Dioxide 24 mmol/L (23-31); Chloride 104 mmol/L (98-107); Estimated GFR 66; Globulin 3.5 g/dL (2.4-3.5); Glucose 86 mg/dL (83-110); Potassium 3.9 mmol/L (3.5-5.1); Protein, Total 7.2 g/dL (5.8-8.1); Sodium 136 mmol/L (136-145)
[2022-09-18] MEDS: Aspirin 81 mg Enteric Coated Tablet PO SCH (08:36)
[2022-09-18] MEDS: Amlodipine 10 MG TAB PO SCH (08:37)
[2022-09-18] MEDS: Labetalol HCl 100 MG TAB PO SCH (08:37)
[2022-09-18] MEDS: Heparin 5,000 UNITS/ML VIAL SC SCH ×2 (08:38→14:06)
[2022-09-18 15:19] VITALS: BP 145/78; TEMP 97.1
== END 2022-09-18 15:15 | DRG 56 ==
LOC: ERS 16:48 → NEURO 19:14 → OBSVTOIN 09-15 19:33
PROVIDERS: ADMIT Emergency Medicine; ATTEND Emergency Medicine
DX: I69.954 Hemiplegia and hemiparesis following unspecified cerebrovascular disease affecting left non-dominant side (principal); G93.41 Metabolic encephalopathy; N17.9 Acute kidney failure, unspecified; E11.9 Type 2 diabetes mellitus without complications; E78.5 Hyperlipidemia, unspecified; E87.6 Hypokalemia; N32.81 Overactive bladder; G93.89 Other specified disorders of brain; I25.2 Old myocardial infarction; Z79.82 Long term (current) use of aspirin; Z79.899 Other long term (current) drug therapy
CPT/HCPCS: 36415; 36416; 70450; 70496; 70498; 71045; 80053; 80061; 80306; 80307; 81001; 82550; 82570; 83036; 83735; 84100; 84300; 84443; 84484; 85025; 85610; 85730; 87077; 87086; 87186; 93005; 93010; 95712; 95819; 95957; 96374; G0378; J1644; J3475; J3480; Q9967

== ENCOUNTER 2024-07-16 16:17 | Emergency (ER) | payer MEDICARE, MEDICAID ==
[2024-07-16] MEDS ORDERED: Ondansetron PF 4 MG/2 ML Vial ONE (16:45)
[2024-07-16 17:10] LABS: Bilirubin Negative (Negative); Blood, Urine Negative (Negative); Glucose, Urine (Dipstick) Negative (Negative); Ketone, Urine Negative (Negative); Leukocyte Negative (Negative); Nitrite Negative (Negative); Protein, Urine (Dipstick) Trace mg/dL (Neg-Trace); Specific Gravity, Urine 1.025 (1.005-1.030); Urobilinogen 0.2 mg/dL (Less than 2); pH, Urine 5.5 (5.0-9.0)
[2024-07-16 17:13] LABS: Clarity Hazy (Clear)
[2024-07-16 17:15] LABS: Bacteria/HPF 2+ HPF (None Seen); CAUTI Indications for Culture Alt mental st,lethar; Calcium Oxalate Crystals Rare HPF (None Seen)
[2024-07-16 17:16] LABS: Urine Culture Reflex No No
[2024-07-16 19:10] LABS: Actual Bicarbonate (HCO3v) 22.6 mEq/L (22-28); Analyzer IN Cardio ER; Base Excess -1.7 mEq/L (-2.0 to +3.0); Calcium, Ionized (venous) 1.15 mmol/L (1.16-1.32); Chloride (VBG) 108 mmol/L (98-106); Hematocrit-VBG 31 % (36.0-47.0); Hemoglobin (Hb) 10.5 g/dL (11.7-16.1); Potassium (VBG) 3.46 mmol/L (3.70-5.30); Sodium 144 mmol/L (133-146); pH (venous) 7.407 (7.32-7.43)
[2024-07-16 19:11] LABS: #Basophils Less than 0.03 10x3/uL (0.0-0.2); %Basophils 0.2 % (0.0-1.0); %Eosinophils 0.8 % (0.0-10.0); %Lymphocytes 7.5 % (21.0-51.0); Hematocrit 29.7 % (36.0-47.0); Hemoglobin 9.3 g/dL (12.0-16.0); Mean Corpuscular HGB CONC 31.3 g/dL (32.0-36.0); Mean Corpuscular Hemoglobin 29.2 pg (27.0-31.0); Mean Corpuscular Volume 93.1 fL (78.0-98.0); Mean Platelet Volume 8.8 fL (7.4-10.4); Platelet Count 187 10x3/uL (130-400); Red Blood Cell (RBC) Count 3.19 mill/uL (4.20-5.40)
[2024-07-16 19:28] LABS: ALT (SGPT) 9 U/L (Less than 34); AST (SGOT) 26 U/L (11-34); Albumin 3.2 g/dL (3.1-4.5); Alkaline Phosphatase 57 U/L (40-110); Anion Gap 11 mmol/L (10-20); BUN (Urea Nitrogen) 24 mg/dL (9.8-20.1); Bilirubin, Total 0.5 mg/dL (0.3-1.2); Calc. Creatinine Clearance 0 mL/min (70-130); Calcium 8.8 mg/dL (7.8-10.44); Carbon Dioxide 22 mmol/L (23-31); Chloride 114 mmol/L (98-107); Estimated GFR 65; Globulin 3.5 g/dL (2.4-3.5); Glucose 134 mg/dL (83-110); INR-International Normal Ratio 1.1; Lipase 22 U/L (8-78); PTT 30.4 sec (22.9-36.1); Potassium 3.7 mmol/L (3.5-5.1); Protein, Total 6.7 g/dL (5.8-8.1); Prothrombin Time 14.6 sec (12.0-14.7); Sodium 143 mmol/L (136-145)
[2024-07-16 19:31] LABS: Troponin I Less than 0.010 ng/mL (< 0.028)
[2024-07-16] MEDS ORDERED: Acetaminophen 500 MG TAB ONE (22:06)
== END 2024-07-16 23:54 ==
LOC: ERS 16:17
DX: I95.9 Hypotension, unspecified (principal); E86.0 Dehydration; I10 Essential (primary) hypertension; E11.9 Type 2 diabetes mellitus without complications
CPT/HCPCS: 70450; 71045; 80053; 81001; 82805; 83605; 83690; 84484; 85025; 85610; 85730; 87040; 87086; 87428; 93005; 94760; J2405; 36415; 96361; 96374